=== PATIENT | female | born 1985 | race Caucasian/White ===

== ENCOUNTER 2025-08-13 02:14 | Emergency (ER) | payer BC, SELFPAY ==
[2025-08-13 02:27] VITALS: BP 174/84; PULSE 78; RESP 18; TEMP 36.3; O2SAT 96; BMI 43.3
--- NOTE | 2025-08-13 03:07 | ED_ITS ---
HPI - Ear Problem General Chief complaint: Ear Stated complaint: Q tip stuck in lt ear Time Seen by Provider: 08/13/25 03:06 Source: patient Mode of arrival: Ambulatory History of Present Illness HPI Narrative: 40yo F with left ear discomfort, no drainage, placed q-tip into left ear canal, the cotton tip came of in the canal, she could not retrieve it. No bleeding. No fevers, chills, recent cough. No current systemic or topical antibiotics. Related Data Previous Rx's ?Medication ?Instructions ?Recorded amoxicillin 875 mg tablet 875 mg PO BID dental infecti on 08/13/25 days #20 tabs Allergies Allergy/AdvReac Type Severity Reaction Status Date / Time No Known Drug Allergies Allergy Verified 08/13/25 02:27 Patient History Social History Smoking Status: Never smoker Smoking Status: Never smoker Exam Narrative Exam Narrative: GENERAL: Well-developed patient, in mild distress. HEAD: Atraumatic. Normocephalic. EYES: Pupils equal round and reactive. Extraocular motions intact. No scleral icterus. No injection or drainage. ENT: Nose without bleeding, purulent drainage. Left EAC with cotton FB removed with alligator forceps, re-inspection showed no residual FB material but TM appeared dull with inferior posterior bulging c/w otitis media. No EAC narrowing or purulence. NECK: Trachea midline. Non tender CARDIOVASCULAR: Regular rate and rhythm without murmurs, gallops, or rubs. RESPIRATORY: Clear to auscultation. Breath sounds equal bilaterally. No wheezes, rales, or rhonchi. GASTROINTESTINAL: Abdomen soft, non-tender, nondistended. EXTREMITIES: No edema or joint tenderness. BACK: Nontender without deformity or crepitance. No flank tenderness. NEURO: AOx3. Motor functions grossly nonfocal. SKIN: No rash or erythema of visible areas Initial Vital Signs Initial Vital Signs: Vital Signs Temperature 97.3 F L 08/13/25 02:27 Pulse Rate 78 08/13/25 02:27 Respiratory Rate 18 08/13/25 02:27 Blood Pressure 174/84 H 08/13/25 02:27 Pulse Oximetry 96 08/13/25 02:27 Oxygen Delivery Method Room Air 08/13/25 02:27 Procedures Foreign Body EAR Location: ear canal (L) Foreign Body Suspected: other (cotton q-tip swab tip) TM intact pre-procedure: unable to visualize Foreign Body Removed: yes Foreign Body Removal Technique: instrumentation (alligator forceps, single attempt) Tympanic Membrane Intact Post Procedure: Yes Patient Tolerated Procedure: Well Complications: none Course Orders Ordered: Discontinued Medications Amoxicillin (Amoxicillin 250 Mg Capsule) 1,000 mg PO NOW ONE Stop: 08/13/25 03:07 Last Admin: 08/13/25 03:11 Dose: 1,000 mg Documented By: HNG Vital Signs Vital signs: Vital Signs - 8 hr 08/13/25 02:27 Temperature 97.3 F L Pulse Rate 78 Respiratory Rate 18 Blood Pressure 174/84 H Pulse Oximetry 96 Oxygen Delivery Method Room Air Medical Decision Making MDM Narrative Medical decision making narrative: Left ear cotton swab tip FB, removed easily with alligator forceps, no residual FB on re-inspection but left TM with acute suppurative otitis media changes, PO Amox given, Rx sent for further course oral abx to her requested pharmacy. DC home. Discharge Plan Departure Patient Disposition: Home Clinical Impression: Otitis media, Acute foreign body of left ear canal Activity Restrictions/Additional Instructions: Left ear foreign body, Q-tip and came off, was removed easily with alligator forceps. Post removal of the Q-tip repeat otoscopy was done, no further foreign body was identified. However the eardrum does look like it might have middle ear infection, with loss of landmarks, dull appearance, and inferior posterior swelling appearance. This is not from the Q-tip but likely incidental finding. It is possible to have spontaneous resolution of middle ear infection without antibiotics. However we did initiate antibiotics. First dose of oral amoxicillin given in the emergency department, prescription sent to your requested pharmacy location she will be heading back to home [facility], we sent it to [facility] pharmacy, so hopefully you can intercept your prescription on your way to see [email or web address] [email or web address] flight out tomorrow for further course of antibiotic. Consider recheck of your your after course of antibiotic is completed with your regular doctor in your home area. Return earlier to this/nearest emergency department for any change worsening symptoms or any concerns prior. Prescriptions: New amoxicillin 875 mg tablet 875 mg PO BID 10 Days Qty: 20 0RF Stand Alone Forms: Patient Portal/API
[2025-08-13] MEDS: AMOXICILLIN 250 MG CAPSULE 1000 MG PO (03:11)
== END 2025-08-13 03:17 | disposition home or self-care (01) ==
PROVIDERS: Emergency Provider Emergency Medicine
DX: T16.2XXA Foreign body in left ear, initial encounter (principal); H66.002 Acute suppurative otitis media without spontaneous rupture of ear drum, left ear; W44.8XXA Other foreign body entering into or through a natural orifice, initial encounter
CPT/HCPCS: 69200; 99283